=== PATIENT | male | born 1955 | race American Indian/Alaskan Native ===

== ENCOUNTER 2016-06-14 03:16 | Emergency (ER) | payer MEDICARE, MEDICAID ==
[2016-06-14 03:22] VITALS: BP 140/68
[2016-06-14] MEDS ORDERED: GI Cocktail Oral Solution 30 ML PO ONE (03:33)
--- NOTE | 2016-06-14 03:36 | EDM.PDOC ---
ED HPI GI/ABDOMINAL - General Chief Complaint: Abdominal Pain Stated Complaint: ABD PAIN Time Seen by Provider: 06/14/16 03:34 Source of Information: Reports: Patient History Limitations: Reports: No limitations - History of Present Illness INITIAL COMMENTS - FREE TEXT/NARRATIVE: onset Sx 9pm, ate pork chops and beans but earlier ate lot of BBQ chips which has upset his stomach. c/o cramps on off denies vomiting, slight nausea. - Related Data Allergies/ADRs: Allergies Allergy/AdvReac Type Severity Reaction Status Date / Time No Known Allergies Allergy Verified 06/14/16 03:37 Home Meds: Home Meds Febuxostat [Uloric] 40 mg PO DAILY 10/12/13 [History] Lisinopril [Prinivil] 0.5 tab PO DAILY 10/12/13 [History] Metoprolol Tartrate 25 mg PO BID 10/12/13 [History] oxyCODONE HCl [oxyCODONE] 15 mg PO Q8HR PRN 10/15/13 [History] Cyclobenzaprine [Flexeril] 1 tab PO ASDIRECTED PRN 03/13/15 [History] Gabapentin [Neurontin] 1 tab PO TID 03/13/15 [History] Ofloxacin [Floxin 0.3% Otic Soln] 1 drop EYEBOTH ASDIRECTED 03/13/15 [History] prednisoLONE Acetate [Pred Forte 1% Ophth Susp] 1 drop EYEBOTH ASDIRECTED [History] Omeprazole 40 mg PO DAILY 06/14/16 [History] Past Medical History HEENT History: Reports: Cataract, Impaired vision Other HEENT History: WEARS READERS/BIFOCALS Cardiovascular History: Reports: Hypertension Respiratory History: Gastrointestinal History: Reports: Other (see below) Other Gastrointestinal History: ulcers Genitourinary History: Reports: Chronic renal insuffiency, Other (see below) Other Genitourinary History: ERECTILE DYSFUNCTION; MALIGNANT NEOPLASM OF PROSTATE; DETRUSOR INSTABILITY; CKD STAGE III Musculoskeletal History: Reports: Fracture, Gout, Osteoarthritis, Other (see below) Other Musculoskeletal History: SEPTIC ARTHRITIS; POLYARTICULAR ARTHRITIS; CARPAL TUNNEL OF LEFT WRIST; CUBITAL TUNNEL SYNDROME ON LEFT; LEFT RIB FRACTURE Neurological History: Reports: Other (see below) Other Neuro History: CHRONIC PAIN; NUMBNESS AND TINGLING IN HANDS Psychiatric History: Reports: Addiction, Other (see below) Other Psychiatric History: H/O OF ALCOHOL ABUSE Endocrine/Metabolic History: Reports: Hyperparathyroidism, Obesity/BMI 30+ Hematologic History: Reports: Anemia, Other (see below) Other Hematologic History: HYPERURICEMIA Immunologic History: Reports: None Oncologic (Cancer) History: Reports: Prostate Dermatologic History: Reports: None - Past Surgical History Head Surgeries/Procedures: Reports: None GI Surgical History: Reports: Colonoscopy Social & Family History - Family History Family Medical History: Noncontributory - Tobacco Use Smoking Status *Q: Current Every Day Smoker Years of Tobacco use: 40 Packs/Tins Daily: 1 Used Tobacco, but Quit: No Second Hand Smoke Exposure: Yes - Caffeine Use Caffeine Use: Reports: Coffee - Alcohol Use Days Per Week of Alcohol Use: 0 Number of Drinks Per Day: 0 Total Drinks Per Week: 0 - Recreational Drug Use Recreational Drug Use: No Drug Use in Last 12 Months: No - Living Situation & Occupation Living situation: Reports: with family Occupation: disabled ED ROS GENERAL - Review of Systems Review Of Systems: ROS reveals no pertinent complaints other than HPI. ED EXAM, GI/ABD - Physical Exam Exam: See Below Exam Limited By: No limitations General Appearance: alert, WD/WN, mild distress, other (epiG discomfort) Ears: hearing grossly normal Throat/Mouth: Normal voice, No airway compromise Head: atraumatic Neck: non-tender, full range of motion Respiratory/Chest: no respiratory distress Cardiovascular: regular rate, rhythm GI/Abdominal: soft, tenderness, other (epiG). No: distention, guarding, rebound Neurological: alert, oriented, normal cognition, normal gait, no motor/sensory deficits Psychiatric: flat affect Skin Exam: Warm, Dry Lymphatic: no adenopathy Course - Vital Signs Last Recorded V/S: Last Vital Signs Temp 36.0 C 06/14/16 03:19 Pulse 74 06/14/16 03:19 Resp 19 06/14/16 03:19 BP 140/68 06/14/16 03:19 Pulse Ox 98 06/14/16 03:19 - Orders/Labs/Meds Meds: Medications Discontinued Medications Generic Name Dose Route Start Last Admin Trade Name Freq PRN Reason Stop Dose Admin Al Hydroxide/Mg Hydroxide 30 ml 06/14/16 03:33 06/14/16 03:37 Gi Cocktail PO 06/14/16 03:34 30 ml ONETIME ONE Administration - Re-Assessments/Exams Free Text/Narrative Re-Assessment/Exam: 06/14/16 03:47 s/p GI cocktail=pain gone, wants to go home Departure - Departure Time of Disposition: 03:47 Disposition: Home, Self-Care 01 Condition: good Clinical Impression: Reflux esophagitis Forms: ED Department Discharge Additional Instructions: 1) avoid BBQ chips and similar junk foods 2) follow up at clinic or recheck as needed
== END 2016-06-14 03:49 | disposition home or self-care (01) ==
LOC: DL.ED 03:16
DX: K21.0 Gastro-esophageal reflux disease with esophagitis (principal); I12.9 Hypertensive chronic kidney disease with stage 1 through stage 4 chronic kidney disease, or unspecified chronic kidney disease; N18.3 Chronic kidney disease, stage 3 (moderate); F17.210 Nicotine dependence, cigarettes, uncomplicated; Z79.899 Other long term (current) drug therapy
CPT/HCPCS: 99283; A9270

== ENCOUNTER 2016-09-14 11:20 | Emergency (ER) | payer MEDICARE, MEDICAID ==
[2016-09-14 11:28] VITALS: BP 142/71
--- NOTE | 2016-09-14 12:00 | EDM.PDOC ---
ED HPI GENERAL MEDICAL PROBLEM - General Chief Complaint: Laceration Stated Complaint: [id number] CUT LEG NEED STITCHES Time Seen by Provider: 09/14/16 11:58 Source of Information: Reports: Patient History Limitations: Reports: No Limitations - History of Present Illness INITIAL COMMENTS - FREE TEXT/NARRATIVE: 60 yo male presents with cut to right lateral leg from fence. bleeding controlled. no other complaints Onset: Today Duration: Constant Location: Reports: Lower Extremity, Right Quality: Reports: Ache Severity: Mild Improves with: Reports: None Worsens with: Reports: None Associated Symptoms: Reports: No Other Symptoms Right Leg Pain Score (Numeric/FACES): 3 - Related Data Allergies Allergy/AdvReac Type Severity Reaction Status Date / Time No Known Allergies Allergy Verified 09/14/16 11:28 Home Meds: Home Meds Febuxostat [Uloric] 40 mg PO DAILY 10/12/13 [History] Lisinopril [Prinivil] 0.5 tab PO DAILY 10/12/13 [History] Metoprolol Tartrate 25 mg PO BID 10/12/13 [History] oxyCODONE HCl [oxyCODONE] 15 mg PO Q8HR PRN 10/15/13 [History] Cyclobenzaprine [Flexeril] 1 tab PO ASDIRECTED PRN 03/13/15 [History] Gabapentin [Neurontin] 1 tab PO TID 03/13/15 [History] Ofloxacin [Floxin 0.3% Otic Soln] 1 drop EYEBOTH ASDIRECTED 03/13/15 [History] prednisoLONE Acetate [Pred Forte 1% Ophth Susp] 1 drop EYEBOTH ASDIRECTED [History] Omeprazole 40 mg PO DAILY 06/14/16 [History] Past Medical History HEENT History: Reports: Cataract, Impaired Vision Other HEENT History: WEARS READERS/BIFOCALS Cardiovascular History: Reports: Hypertension Respiratory History: Reports: None Gastrointestinal History: Reports: Other (See Below) Other Gastrointestinal History: ulcers Genitourinary History: Reports: Chronic Renal Insuffiency Other Genitourinary History: ERECTILE DYSFUNCTION; MALIGNANT NEOPLASM OF PROSTATE; DETRUSOR INSTABILITY; CKD STAGE III Musculoskeletal History: Reports: Fracture, Gout, Osteoarthritis Other Musculoskeletal History: SEPTIC ARTHRITIS; POLYARTICULAR ARTHRITIS; CARPAL TUNNEL OF LEFT WRIST; CUBITAL TUNNEL SYNDROME ON LEFT; LEFT RIB FRACTURE Neurological History: Reports: Other (See Below) Other Neuro History: CHRONIC PAIN; NUMBNESS AND TINGLING IN HANDS Psychiatric History: Reports: Addiction Other Psychiatric History: H/O OF ALCOHOL ABUSE Endocrine/Metabolic History: Reports: Hyperparathyroidism, Obesity/BMI 30+ Hematologic History: Reports: Anemia, Other (See Below) Other Hematologic History: HYPERURICEMIA Immunologic History: Reports: None Oncologic (Cancer) History: Reports: Prostate Dermatologic History: Reports: None - Infectious Disease History Infectious Disease History: Reports: None - Past Surgical History Head Surgeries/Procedures: Reports: None HEENT Surgical History: Reports: None, Cataract Surgery Male Surgical History: Reports: Penile Surgery Musculoskeletal Surgical History: Reports: Carpal Tunnel, Hip Replacement, Other (See Below) Social & Family History - Family History Family Medical History: Noncontributory - Tobacco Use Smoking Status *Q: Current Every Day Smoker Years of Tobacco use: 48 Packs/Tins Daily: 1 Used Tobacco, but Quit: No Second Hand Smoke Exposure: No - Caffeine Use Caffeine Use: Reports: Coffee, Tea - Alcohol Use Days Per Week of Alcohol Use: 0 Number of Drinks Per Day: 0 Total Drinks Per Week: 0 - Recreational Drug Use Recreational Drug Use: No Drug Use in Last 12 Months: No - Living Situation & Occupation Living situation: Reports: with Family Occupation: Disabled ED ROS GENERAL - Review of Systems Review Of Systems: ROS reveals no pertinent complaints other than HPI. ED EXAM, SKIN/RASH Exam: See Below Exam Limited By: No Limitations General Appearance: Alert, WD/WN, No Apparent Distress Eye Exam: Bilateral Eye: PERRL Respiratory/Chest: No Respiratory Distress, Lungs Clear, Normal Breath Sounds, No Accessory Muscle Use, Chest Non-Tender Cardiovascular: Normal Peripheral Pulses, Regular Rate, Rhythm, No Edema, No Gallop, No JVD, No Murmur, No Rub Neurological: Alert, Oriented, CN II-XII Intact, Normal Cognition, Normal Gait, Normal Reflexes, No Motor/Sensory Deficits Skin: Warm, Dry, Intact, Normal Color, No Rash, Wound/Incision Location, Skin: Lower Extremity, Right Characteristics: Linear Associated features: Tenderness ED SKIN PROCEDURES - Laceration/Wound Repair Right Lateral Leg Lac/Wound length In cm: 4 Appearance: Subcutaneous, Mildly Contaminated Distal NVT: Neuro & Vascular Intact Anesthetic Type: Local Local Anesthesia - Lidocaine (Xylocaine): 1% Plain Local Anesthetic Volume: 4cc Skin Prep: Chlorhexidine (Hibiciens), Saline Saline Irrigation (cc's): 40 Suture Size: 3-0 Repaired with: Vicryl Drain Placement: No Sterile Dressing Applied: None Tetanus Status Addressed: Yes Complications: No Course - Vital Signs Last Recorded V/S: Last Vital Signs Temp 96.8 F 09/14/16 11:27 Pulse 66 09/14/16 11:27 Resp 16 09/14/16 11:27 BP 142/71 H 09/14/16 11:27 Pulse Ox 97 09/14/16 11:27 - Orders/Labs/Meds Meds: Medications Discontinued Medications Generic Name Dose Route Start Last Admin Trade Name Henryq PRN Reason Stop Dose Admin Lidocaine HCl 30 ml 09/14/16 12:01 Xylocaine-Mpf 1% INJECT 09/14/16 12:02 ONETIME ONE Departure - Departure Time of Disposition: 13:00 Disposition: Home, Self-Care 01 Condition: Good Clinical Impression: Laceration - Discharge Information Instructions: Stitches, [place], or Adhesive Wound Closure, [id number], Laceration Care, Adult, [id number] Forms: ED Department Discharge Additional Instructions: Return for any worsening symptoms.
[2016-09-14] MEDS ORDERED: Lidocaine 1% 30 ML SDV INJECT ONE (12:01)
== END 2016-09-14 13:08 | disposition home or self-care (01) ==
LOC: DL.ED 11:20
DX: S81.811A Laceration without foreign body, right lower leg, initial encounter (principal); F17.210 Nicotine dependence, cigarettes, uncomplicated; I12.9 Hypertensive chronic kidney disease with stage 1 through stage 4 chronic kidney disease, or unspecified chronic kidney disease; N18.3 Chronic kidney disease, stage 3 (moderate); E66.9 Obesity, unspecified; Z85.46 Personal history of malignant neoplasm of prostate; Z98.49 Cataract extraction status, unspecified eye; Z98.890 Other specified postprocedural states; Z96.649 Presence of unspecified artificial hip joint; Z79.899 Other long term (current) drug therapy; Z68.41 Body mass index [BMI] 40.0-44.9, adult; X58.XXXA Exposure to other specified factors, initial encounter
CPT/HCPCS: 12002; 99282; 99283

== ENCOUNTER 2017-07-26 12:40 | Emergency (ER) | payer MEDICARE, MEDICAID ==
[2017-07-26 13:14] VITALS: BP 137/71
== END 2017-07-26 15:22 | disposition left against medical advice (07) ==
LOC: DL.ED 12:40
DX: Z53.21 Procedure and treatment not carried out due to patient leaving prior to being seen by health care provider (principal)

== ENCOUNTER 2018-12-20 14:53 | Emergency (ER) | payer MEDICARE, MEDICAID ==
[2018-12-20 16:36] VITALS: BP 138/75; PULSE 78
--- NOTE | 2018-12-20 17:16 | EDM.PDOC ---
ED HPI GENERAL MEDICAL PROBLEM - General Chief Complaint: Genitourinary Problem Stated Complaint: BLADDER ISSUE Time Seen by Provider: 12/20/18 16:45 Source of Information: Reports: Patient, RN, RN Notes Reviewed History Limitations: Reports: No Limitations - History of Present Illness INITIAL COMMENTS - FREE TEXT/NARRATIVE: patient presents to ER with complaints of frequent urination. States he urinates small amounts, feels like he does not empty completely. patient states he is here because he wants a different medication than the oxybutynin that he takes daily. He states he feels the medication does not work for him anymore, and he is unsure of when he can get into see his primary care provider. Patient denies any burning with urination. Patient states he has been taking the oxybutynin for 2-3 years. Onset: Gradual Duration: Constant Generalized Pain Score (Numeric/FACES): 3 - Related Data Allergies Allergy/AdvReac Type Severity Reaction Status Date / Time No Known Allergies Allergy Verified 12/20/18 15:27 Home Meds: Home Meds Febuxostat [Uloric] 40 mg PO DAILY 10/12/13 [History] Lisinopril [Prinivil] 0.5 tab PO DAILY 10/12/13 [History] Metoprolol Tartrate 25 mg PO BID 10/12/13 [History] oxyCODONE HCl [oxyCODONE] 15 mg PO Q8HR PRN 10/15/13 [History] Gabapentin [Neurontin] 1 tab PO TID 03/13/15 [History] Ofloxacin [Floxin 0.3% Otic Soln] 1 drop EYEBOTH ASDIRECTED 03/13/15 [History] prednisoLONE Acetate [Pred Forte 1% Ophth Susp] 1 drop EYEBOTH ASDIRECTED [History] Oxybutynin [Oxybutynin ER] 10 mg PO DAILY 12/20/18 [History] Past Medical History HEENT History: Reports: Cataract, Impaired Vision Other HEENT History: WEARS READERS/BIFOCALS Cardiovascular History: Reports: Hypertension Respiratory History: Reports: None Gastrointestinal History: Reports: Other (See Below) Other Gastrointestinal History: ulcers Genitourinary History: Reports: Chronic Renal Insuffiency Other Genitourinary History: ERECTILE DYSFUNCTION; MALIGNANT NEOPLASM OF PROSTATE; DETRUSOR INSTABILITY; CKD STAGE III Musculoskeletal History: Reports: Fracture, Gout, Osteoarthritis Other Musculoskeletal History: SEPTIC ARTHRITIS; POLYARTICULAR ARTHRITIS; CARPAL TUNNEL OF LEFT WRIST; CUBITAL TUNNEL SYNDROME ON LEFT; LEFT RIB FRACTURE Neurological History: Reports: Other (See Below) Other Neuro History: CHRONIC PAIN; NUMBNESS AND TINGLING IN HANDS Psychiatric History: Reports: Addiction Other Psychiatric History: H/O OF ALCOHOL ABUSE Endocrine/Metabolic History: Reports: Hyperparathyroidism, Obesity/BMI 30+ Hematologic History: Reports: Anemia, Other (See Below) Other Hematologic History: HYPERURICEMIA Immunologic History: Reports: None Oncologic (Cancer) History: Reports: Prostate Dermatologic History: Reports: None - Infectious Disease History Infectious Disease History: Reports: None - Past Surgical History Head Surgeries/Procedures: Reports: None HEENT Surgical History: Reports: None, Cataract Surgery Male Surgical History: Reports: Penile Surgery Musculoskeletal Surgical History: Reports: Carpal Tunnel, Hip Replacement, Knee Replacement, Other (See Below) Social & Family History - Family History Family Medical History: Noncontributory - Tobacco Use Smoking Status *Q: Current Every Day Smoker Years of Tobacco use: 45 Packs/Tins Daily: 1 Second Hand Smoke Exposure: No - Caffeine Use Caffeine Use: Reports: None - Recreational Drug Use Recreational Drug Use: No - Living Situation & Occupation Living situation: Reports: with Family Occupation: Disabled ED ROS GENERAL - Review of Systems Review Of Systems: ROS reveals no pertinent complaints other than HPI. ED EXAM, RENAL/ - Physical Exam Exam: See Below Exam Limited By: No Limitations General Appearance: Alert, WD/WN, No Apparent Distress Eye Exam: Bilateral Eye: EOMI, Normal Inspection Ears: Normal External Exam, Hearing Grossly Normal Nose: Normal Inspection Throat/Mouth: Normal Inspection, Normal Voice, No Airway Compromise Head: Atraumatic, Normocephalic Neck: Normal Inspection, Supple, Non-Tender, Full Range of Motion Respiratory/Chest: No Respiratory Distress, Normal Breath Sounds, No Accessory Muscle Use, Chest Non-Tender, Crackles (Room) Cardiovascular: Normal Peripheral Pulses, Regular Rate, Rhythm, No Edema, No Gallop, No JVD, No Murmur, No Rub GI/Abdominal: Normal Bowel Sounds, Soft, Non-Tender, No Organomegaly, No Distention, No Abnormal Bruit, No Mass (Male) Exam: Deferred Rectal (Males) Exam: Deferred Back Exam: Normal Inspection, Full Range of Motion, NT Extremities: Normal Inspection, Normal Range of Motion, Non-Tender, Normal Capillary Refill, No Pedal Edema Neurological: Alert, Oriented, CN II-XII Intact, Normal Cognition, Normal Gait, Normal Reflexes, No Motor/Sensory Deficits Psychiatric: Normal Affect, Normal Mood Skin Exam: Warm, Dry, Intact, Normal Color, No Rash Lymphatic: No Adenopathy Course - Vital Signs Last Recorded V/S: Last Vital Signs Temp 97.3 F 12/20/18 15:22 Pulse 78 12/20/18 16:35 Resp 16 12/20/18 16:35 BP 138/75 12/20/18 16:35 Pulse Ox 97 12/20/18 16:35 - Orders/Labs/Meds Orders: Active Orders 24 hr Category Date Time Status CULTURE URINE [RM] Urgent Lab 12/20/18 16:34 Received Labs: Laboratory Tests 12/20/18 Range/Units 16:34 Urine Color Yellow (YELLOW) Urine Appearance Clear (CLEAR) Urine pH 7.0 (5.0-9.0) Ur Specific [place] 1.015 (1.005-1.030) Urine Protein >=300 H (NEGATIVE) Urine Glucose (UA) Negative (NEGATIVE) Urine Ketones Negative (NEGATIVE) Urine Occult Blood Trace-intact H (NEGATIVE) Urine Nitrite Negative (NEGATIVE) Urine Bilirubin Negative (NEGATIVE) Urine Urobilinogen 0.2 (0.2-1.0) mg/dL Ur Leukocyte Esterase Trace H (NEGATIVE) Urine RBC 5-10 H /HPF Urine WBC 0-5 (0-5/HPF) /HPF Ur Epithelial Cells Rare (NOT SEEN) /HPF Amorphous Sediment Rare (NOT SEEN) /HPF Urine Bacteria Rare (0-FEW/HPF) /HPF Urine Mucus Rare (NOT SEEN) /LPF Departure - Departure Time of Disposition: 17:14 Disposition: Home, Self-Care 01 Condition: Good Clinical Impression: Overactive bladder - Discharge Information *PRESCRIPTION DRUG MONITORING PROGRAM REVIEWED*: No *COPY OF PRESCRIPTION DRUG MONITORING REPORT IN PATIENT WAN: No Instructions: Overactive Bladder, Adult Forms: ED Department Discharge Additional Instructions: Rx: Oxybutynin 5 mg 1 by mouth daily Follow up with your primary care provider this week - My Orders Last 24 Hours: My Active Orders 12/20/18 16:34 CULTURE URINE [RM] Urgent - Assessment/Plan Last 24 Hours: My Active Orders 12/20/18 16:34 CULTURE URINE [RM] Urgent
== END 2018-12-20 17:19 | disposition home or self-care (01) ==
LOC: DL.ED 14:53
DX: N32.9 Bladder disorder, unspecified (principal); I12.9 Hypertensive chronic kidney disease with stage 1 through stage 4 chronic kidney disease, or unspecified chronic kidney disease; N18.3 Chronic kidney disease, stage 3 (moderate); E66.9 Obesity, unspecified; F17.210 Nicotine dependence, cigarettes, uncomplicated; Z79.899 Other long term (current) drug therapy; Z68.39 Body mass index [BMI] 39.0-39.9, adult
CPT/HCPCS: 81001; 87086; 99283

== ENCOUNTER 2019-02-24 13:32 | Emergency (ER) | payer MEDICARE, MEDICAID ==
[2019-02-24 14:01] VITALS: BP 127/63; PULSE 86
[2019-02-24] MEDS ORDERED: Ibuprofen 800 MG Tab PO ONE (14:35)
[2019-02-24] MEDS ORDERED: Codeine/Promethazine 10-6.25 MG/5 ML Syrup 5 ML UD Cup PO ONE (14:35)
[2019-02-24] MEDS ORDERED: Oseltamivir 75 MG Cap PO ONE (14:35)
--- NOTE | 2019-02-24 14:43 | EDM.PDOC ---
Scribed by Nickie Loredo 02/24/19 [id number] for Ariel Tom MD ED HPI GENERAL MEDICAL PROBLEM - General Chief Complaint: General Stated Complaint: ACHY/DOESN'T FEEL GOOD Time Seen by Provider: 02/24/19 14:09 Source of Information: Reports: Patient, RN, RN Notes Reviewed History Limitations: Reports: No Limitations - History of Present Illness INITIAL COMMENTS - FREE TEXT/NARRATIVE: Patient presents to ER with complaint of body aches and cough starting today. Pt reports subjective fever, but has not measured his temperature. Onset: Today Duration: Getting Worse Location: Reports: Chest Quality: Reports: Ache Severity: Moderate Improves with: Reports: None Associated Symptoms: Reports: No Other Symptoms - Related Data Allergies Allergy/AdvReac Type Severity Reaction Status Date / Time No Known Allergies Allergy Verified 12/20/18 15:27 Home Meds: Home Meds Febuxostat [Uloric] 40 mg PO DAILY 10/12/13 [History] Metoprolol Tartrate 25 mg PO BID 10/12/13 [History] lisinopriL [Prinivil] 0.5 tab PO DAILY 10/12/13 [History] oxyCODONE HCl [oxyCODONE] 15 mg PO Q8HR PRN 10/15/13 [History] Gabapentin [Neurontin] 1 tab PO TID 03/13/15 [History] Ofloxacin [Floxin 0.3% Otic Soln] 1 drop EYEBOTH ASDIRECTED 03/13/15 [History] prednisoLONE Acetate [Pred Forte 1% Ophth Susp] 1 drop EYEBOTH ASDIRECTED [History] Oxybutynin [Oxybutynin ER] 10 mg PO DAILY 12/20/18 [History] Past Medical History HEENT History: Reports: Cataract, Impaired Vision Other HEENT History: WEARS READERS/BIFOCALS Cardiovascular History: Reports: Hypertension Respiratory History: Reports: None Gastrointestinal History: Reports: Other (See Below) Other Gastrointestinal History: ulcers Genitourinary History: Reports: Chronic Renal Insuffiency Other Genitourinary History: ERECTILE DYSFUNCTION; MALIGNANT NEOPLASM OF PROSTATE; DETRUSOR INSTABILITY; CKD STAGE III Musculoskeletal History: Reports: Fracture, Gout, Osteoarthritis Other Musculoskeletal History: SEPTIC ARTHRITIS; POLYARTICULAR ARTHRITIS; CARPAL TUNNEL OF LEFT WRIST; CUBITAL TUNNEL SYNDROME ON LEFT; LEFT RIB FRACTURE Neurological History: Reports: Other (See Below) Other Neuro History: CHRONIC PAIN; NUMBNESS AND TINGLING IN HANDS Psychiatric History: Reports: Addiction Other Psychiatric History: H/O OF ALCOHOL ABUSE Endocrine/Metabolic History: Reports: Hyperparathyroidism, Obesity/BMI 30+ Hematologic History: Reports: Anemia, Other (See Below) Other Hematologic History: HYPERURICEMIA Immunologic History: Reports: None Oncologic (Cancer) History: Reports: Prostate Dermatologic History: Reports: None - Infectious Disease History Infectious Disease History: Reports: None - Past Surgical History Head Surgeries/Procedures: Reports: None HEENT Surgical History: Reports: None, Cataract Surgery Male Surgical History: Reports: Penile Surgery Musculoskeletal Surgical History: Reports: Carpal Tunnel, Hip Replacement, Knee Replacement, Other (See Below) Social & Family History - Family History Family Medical History: Noncontributory - Tobacco Use Smoking Status *Q: Current Every Day Smoker Years of Tobacco use: 1 Packs/Tins Daily: 50 - Caffeine Use Caffeine Use: Reports: Coffee - Recreational Drug Use Recreational Drug Use: No - Living Situation & Occupation Living situation: Reports: with Family Occupation: Disabled ED ROS GENERAL - Review of Systems Review Of Systems: Comprehensive ROS is negative, except as noted in HPI. ED EXAM, GENERAL - Physical Exam Exam: See Below Exam Limited By: No Limitations General Appearance: Alert, WD/WN, No Apparent Distress, Obese Eye Exam: Bilateral Eye: Normal Inspection Ears: Normal External Exam, Normal Canal, Hearing Grossly Normal, Normal TMs Nose: Nasal Drainage, Clear Rhinorrhea Throat/Mouth: Normal Inspection, Normal Lips, Normal Teeth, Normal Gums, Normal Oropharynx, Normal Voice, No Airway Compromise Head: Atraumatic, Normocephalic Neck: Normal Inspection, Supple, Non-Tender, Full Range of Motion. No: Lymphadenopathy (L), Lymphadenopathy (R) Respiratory/Chest: No Respiratory Distress, Lungs Clear, Normal Breath Sounds, No Accessory Muscle Use, Chest Non-Tender, Other (Dry cough) Cardiovascular: Normal Peripheral Pulses, Regular Rate, Rhythm, No Edema, No Gallop, No JVD, No Murmur, No Rub GI/Abdominal: Normal Bowel Sounds, Soft, Non-Tender, No Distention. No: Guarding, Rigid, Rebound Back Exam: Normal Inspection Extremities: Normal Inspection, Normal Range of Motion, Non-Tender, Normal Capillary Refill, No Pedal Edema Neurological: Alert, Oriented, CN II-XII Intact, Normal Cognition, No Motor/ Sensory Deficits Psychiatric: Normal Affect, Normal Mood Skin Exam: Warm, Dry, Intact, Normal Color, No Rash Course - Vital Signs Last Recorded V/S: Last Vital Signs Temp 98.2 F 02/24/19 14:00 Pulse 86 02/24/19 14:00 Resp 18 02/24/19 14:00 BP 127/63 02/24/19 14:00 Pulse Ox 96 02/24/19 14:00 - Orders/Labs/Meds Labs: Influenza A and B: Negative. Meds: Medications Discontinued Medications Generic Name Dose Route Start Last Admin Trade Name Amina PRN Reason Stop Dose Admin Ibuprofen 800 mg 02/24/19 14:35 Motrin PO 02/24/19 14:36 ONETIME ONE Oseltamivir Phosphate 75 mg 02/24/19 14:35 Tamiflu PO 02/24/19 14:36 ONETIME ONE Promethazine HCl/Codeine 10 ml 02/24/19 14:35 Phenergan With Codeine PO 02/24/19 14:36 ONETIME ONE Departure - Departure Time of Disposition: 14:40 Disposition: Home, Self-Care 01 Condition: Good Clinical Impression: Acute viral syndrome - Discharge Information *PRESCRIPTION DRUG MONITORING PROGRAM REVIEWED*: No *COPY OF PRESCRIPTION DRUG MONITORING REPORT IN PATIENT WAN: No Instructions: Viral Illness, Adult, Influenza, Adult, [id number] Forms: ED Department Discharge Additional Instructions: Rx: Tamiflu 75mg Use over the counter Tylenol (Acetaminophen) and/or Ibuprofen (Motrin/Advil) as needed for fever or pain. Follow directions on label for dosing and precautions. Drink plenty of water. Follow up in clinic if not improving in 4 to 5 days. Sepsis Event Note - Evaluation Sepsis Screening Result: No Definite Risk - Focused Exam Vital Signs: Vital Signs Temp Pulse Resp BP Pulse Ox 02/24/19 14:00 98.2 F 86 18 127/63 96 Date Exam was Performed: 02/24/19 Time Exam was Performed: 14:39 I have read and agree with the documentation that has been completed regarding this visit. By signing this record, I attest that the documentation was completed in my physical presence and is an accurate record of the encounter.
== END 2019-02-24 14:58 | disposition home or self-care (01) ==
LOC: DL.ED 13:32
DX: B34.9 Viral infection, unspecified (principal); I12.9 Hypertensive chronic kidney disease with stage 1 through stage 4 chronic kidney disease, or unspecified chronic kidney disease; N18.9 Chronic kidney disease, unspecified; F17.210 Nicotine dependence, cigarettes, uncomplicated; Z79.899 Other long term (current) drug therapy
CPT/HCPCS: 87804; 99283; A9270

== ENCOUNTER 2019-03-25 12:53 | Emergency (ER) | payer MEDICARE, MEDICAID ==
[2019-03-25 13:06] VITALS: BP 115/75; PULSE 88
--- NOTE | 2019-03-25 13:10 | EDM.PDOC ---
ED HPI GENERAL MEDICAL PROBLEM - General Chief Complaint: Genitourinary Problem Stated Complaint: PRIVATE REASONS Time Seen by Provider: 03/25/19 13:09 Source of Information: Reports: Patient, Old Records, RN, RN Notes Reviewed History Limitations: Reports: Other (Pt with poor memory of recent events.) - History of Present Illness INITIAL COMMENTS - FREE TEXT/NARRATIVE: Pt presents to ER from home by POV with c/o penis pain and swelling since having a Carranza catheter placed by a urologist at [facility] on 03/23/19. Pt states he was having urinary incontinence, so he was told he would have to have this catheter in until his next appointment on 04/10/19. Pt denies abdominal pain, pelvic pain, flank pain, low back pain, fever, chills, N/V, or bowel habit changes. Pt states he was started on Flomax. He takes Oxycodone for chronic pain, but states it has not helped his penile pain. Onset: Gradual Duration: Constant Location: Reports: Other (Penis) Quality: Reports: Ache, Pressure Severity: Moderate Improves with: Reports: None Worsens with: Reports: None Associated Symptoms: Reports: No Other Symptoms Penis Pain Score (Numeric/FACES): 7 - Related Data Allergies Allergy/AdvReac Type Severity Reaction Status Date / Time No Known Allergies Allergy Verified 03/25/19 13:06 Home Meds: Home Meds Febuxostat [Uloric] 40 mg PO DAILY 10/12/13 [History] Metoprolol Tartrate 25 mg PO BID 10/12/13 [History] lisinopriL [Prinivil] 0.5 tab PO DAILY 10/12/13 [History] oxyCODONE HCl [oxyCODONE] 15 mg PO Q8HR PRN 10/15/13 [History] Gabapentin [Neurontin] 1 tab PO TID 03/13/15 [History] Ofloxacin [Floxin 0.3% Otic Soln] 1 drop EYEBOTH ASDIRECTED 03/13/15 [History] prednisoLONE Acetate [Pred Forte 1% Ophth Susp] 1 drop EYEBOTH ASDIRECTED [History] Oxybutynin [Oxybutynin ER] 10 mg PO DAILY 12/20/18 [History] Past Medical History HEENT History: Reports: Cataract, Impaired Vision Other HEENT History: WEARS READERS/BIFOCALS Cardiovascular History: Reports: Hypertension Respiratory History: Reports: None Gastrointestinal History: Reports: Other (See Below) Other Gastrointestinal History: ulcers Genitourinary History: Reports: Chronic Renal Insuffiency, Urinary Incontinence Other Genitourinary History: ERECTILE DYSFUNCTION; MALIGNANT NEOPLASM OF PROSTATE; DETRUSOR INSTABILITY; CKD STAGE III Musculoskeletal History: Reports: Fracture, Gout, Osteoarthritis Other Musculoskeletal History: SEPTIC ARTHRITIS; POLYARTICULAR ARTHRITIS; CARPAL TUNNEL OF LEFT WRIST; CUBITAL TUNNEL SYNDROME ON LEFT; LEFT RIB FRACTURE Neurological History: Reports: Other (See Below) Other Neuro History: CHRONIC PAIN; NUMBNESS AND TINGLING IN HANDS Psychiatric History: Reports: Addiction Other Psychiatric History: H/O OF ALCOHOL ABUSE Endocrine/Metabolic History: Reports: Hyperparathyroidism, Obesity/BMI 30+ Hematologic History: Reports: Anemia, Other (See Below) Other Hematologic History: HYPERURICEMIA Immunologic History: Reports: None Oncologic (Cancer) History: Reports: Prostate Dermatologic History: Reports: None - Infectious Disease History Infectious Disease History: Reports: None - Past Surgical History Head Surgeries/Procedures: Reports: None HEENT Surgical History: Reports: None, Cataract Surgery Male Surgical History: Reports: Penile Surgery Musculoskeletal Surgical History: Reports: Carpal Tunnel, Hip Replacement, Knee Replacement, Other (See Below) Social & Family History - Family History Family Medical History: Noncontributory - Tobacco Use Smoking Status *Q: Current Every Day Smoker Years of Tobacco use: 30 Packs/Tins Daily: 0.5 - Caffeine Use Caffeine Use: Reports: Coffee, Energy Drinks, Tea - Recreational Drug Use Recreational Drug Use: No - Living Situation & Occupation Living situation: Reports: with Family Occupation: Employed ED ROS GENERAL - Review of Systems Review Of Systems: Comprehensive ROS is negative, except as noted in HPI. ED EXAM, RENAL/ - Physical Exam Exam: See Below Exam Limited By: No Limitations General Appearance: Alert, WD/WN, No Apparent Distress Head: Atraumatic, Normocephalic Respiratory/Chest: No Respiratory Distress GI/Abdominal: Normal Bowel Sounds, Soft, Non-Tender, No Organomegaly, No Distention, No Abnormal Bruit, No Mass (Male) Exam: Other (Carranza catheter in place and draining normally. Mild generalized penile edema, no erythema. The Carranza was under tension and not secured with a leg strap (pt states he was never given a leg strap when the Carranza was placed).). No: Inguinal Lymphadenopathy, Penile Lesions, Rash, Scrotal Swelling, Scrotum Tenderness (L), Scrotum Tenderness (R), Urethral Discharge Back Exam: Normal Inspection. No: CVA Tenderness (L), CVA Tenderness (R) Neurological: Alert, Oriented, No Motor/Sensory Deficits Psychiatric: Normal Mood Skin Exam: Warm, Dry, Intact, Normal Color, No Rash Course - Vital Signs Last Recorded V/S: Last Vital Signs Temp 97.4 F 03/25/19 13:00 Pulse 88 03/25/19 13:00 Resp 16 03/25/19 13:00 BP 115/75 03/25/19 13:00 Pulse Ox 98 03/25/19 13:00 - Orders/Labs/Meds Orders: Active Orders 24 hr Category Date Time Status CULTURE URINE [RM] Stat Lab 03/25/19 13:50 Received Labs: Laboratory Tests 03/25/19 Range/Units 13:50 Urine Color Yellow (YELLOW) Urine Appearance Cloudy (CLEAR) Urine pH 7.0 (5.0-9.0) Ur Specific [place] 1.025 (1.005-1.030) Urine Protein >=300 H (NEGATIVE) Urine Glucose (UA) Negative (NEGATIVE) Urine Ketones Negative (NEGATIVE) Urine Occult Blood Large H (NEGATIVE) Urine Nitrite Negative (NEGATIVE) Urine Bilirubin Small H (NEGATIVE) Urine Urobilinogen 2.0 H (0.2-1.0) mg/dL Ur Leukocyte Esterase Trace H (NEGATIVE) Urine RBC >100 H /HPF Urine WBC 5-10 H (0-5/HPF) /HPF Ur Epithelial Cells Occasional (NOT SEEN) /HPF Urine Bacteria Few (0-FEW/HPF) /HPF Urine Mucus Not seen (NOT SEEN) /LPF Departure - Departure Time of Disposition: 14:41 Disposition: Home, Self-Care 01 Condition: Fair Clinical Impression: Penile edema, Indwelling Carranza catheter present - Discharge Information *PRESCRIPTION DRUG MONITORING PROGRAM REVIEWED*: No *COPY OF PRESCRIPTION DRUG MONITORING REPORT IN PATIENT WAN: No Instructions: Indwelling Urinary Catheter Care, Adult Forms: ED Department Discharge Additional Instructions: Rest, use an ice pack/cold pack to penis. Stay off your feet. Use the leg strap to prevent the catheter from pulling on the penis. May shower normally. Follow up with your primary clinic next week for recheck. Sepsis Event Note - Evaluation Sepsis Screening Result: No Definite Risk - Focused Exam Vital Signs: Vital Signs Temp Pulse Resp BP Pulse Ox 03/25/19 13:00 97.4 F 88 16 115/75 98 Date Exam was Performed: 03/25/19 Time Exam was Performed: 14:31 - My Orders Last 24 Hours: My Active Orders 03/25/19 13:50 CULTURE URINE [RM] Stat - Assessment/Plan Last 24 Hours: My Active Orders 03/25/19 13:50 CULTURE URINE [RM] Stat
== END 2019-03-25 15:01 | disposition home or self-care (01) ==
LOC: DL.ED 12:53
DX: N48.89 Other specified disorders of penis (principal); I12.9 Hypertensive chronic kidney disease with stage 1 through stage 4 chronic kidney disease, or unspecified chronic kidney disease; N18.3 Chronic kidney disease, stage 3 (moderate); E66.9 Obesity, unspecified; F17.210 Nicotine dependence, cigarettes, uncomplicated; Z96.0 Presence of urogenital implants; Z79.899 Other long term (current) drug therapy
CPT/HCPCS: 81001; 87086; 99282; 99283

== ENCOUNTER 2021-03-17 21:29 | Emergency (ER) | payer MEDICAID, MEDICARE ==
[2021-03-17 22:20] VITALS: BP 160/93; PULSE 83
[2021-03-17] MEDS ORDERED: methylPREDNISolone Sodium Succinate 125 MG/2 ML SDV IM ONE (23:50)
[2021-03-17] MEDS ORDERED: Ketorolac 30 MG/ML SDV IM ONE (23:50)
== END 2021-03-18 00:18 | disposition home or self-care (01) ==
LOC: DL.ED 21:29
DX: M25.552 Pain in left hip (principal); I12.9 Hypertensive chronic kidney disease with stage 1 through stage 4 chronic kidney disease, or unspecified chronic kidney disease; N18.30 Chronic kidney disease, stage 3 unspecified; E66.9 Obesity, unspecified; Z68.30 Body mass index [BMI] 30.0-30.9, adult; Z79.899 Other long term (current) drug therapy
CPT/HCPCS: 36415; 73502; 85025; 86140; 96372; 99283; J1885; J2930

== ENCOUNTER 2021-09-05 07:59 | Emergency (ER) | payer BC, MEDICAID ==
[2021-09-05 08:15] VITALS: BP 169/82; PULSE 76
== END 2021-09-05 08:43 | disposition home or self-care (01) ==
LOC: DL.ED 07:59
DX: N39.0 Urinary tract infection, site not specified (principal); I12.9 Hypertensive chronic kidney disease with stage 1 through stage 4 chronic kidney disease, or unspecified chronic kidney disease; N18.30 Chronic kidney disease, stage 3 unspecified; E66.9 Obesity, unspecified; Z68.36 Body mass index [BMI] 36.0-36.9, adult; Z79.899 Other long term (current) drug therapy
CPT/HCPCS: 81001; 87086; 87088; 87186; 99283

== ENCOUNTER 2021-12-03 02:24 | Emergency (ER) | payer BC, MEDICAID ==
[2021-12-03] MEDS ORDERED: GI Cocktail Oral Solution 30 ML PO ONE (02:45)
[2021-12-03] MEDS ORDERED: Ondansetron 4 MG/2 ML SDV IM ONE (03:20)
[2021-12-03] MEDS ORDERED: Sodium Chloride 0.9% 1,000 ML IV ONE (04:25)
[2021-12-03] MEDS ORDERED: Piperacillin/Tazobactam 3.375 GM in Sodium Chloride 0.9% 100 ML IV ONE (06:02)
[2021-12-28 13:13] LABS: ANION GAP 11.1 mEq/L (7-13); CHLORIDE,CL 109 mmol/L (98-107); SODIUM,NA 142 mmol/L (136-145)
[2021-12-28 13:14] LABS: ESTIMATED GFR 39 mL/min (>=60)
[2021-12-28 13:17] LABS: AMPHETAMINES,URINE NEGATIVE (NEGATIVE); BARBITURATES,URINE NEGATIVE (NEGATIVE); BENZODIAZEPINE,URINE NEGATIVE (NEGATIVE); MDMA (ECSTASY), URINE NEGATIVE (NEGATIVE); METHADONE,URINE NEGATIVE (NEGATIVE); METHAMPHETAMINES,URINE NEGATIVE (NEGATIVE); OPIATES,URINE NEGATIVE (NEGATIVE); OXYCODONE,URINE NEGATIVE (NEGATIVE); PHENCYCLIDINE,URINE NEGATIVE (NEGATIVE); TCA,URINE NEGATIVE (NEGATIVE)
== END 2021-12-03 07:10 ==
LOC: DL.ED 02:24
DX: K80.00 Calculus of gallbladder with acute cholecystitis without obstruction (principal); K57.90 Diverticulosis of intestine, part unspecified, without perforation or abscess without bleeding; I12.9 Hypertensive chronic kidney disease with stage 1 through stage 4 chronic kidney disease, or unspecified chronic kidney disease; N18.9 Chronic kidney disease, unspecified; M10.9 Gout, unspecified
CPT/HCPCS: 36415; 74177; 80053; 80305; 80307; 81001; 82150; 83605; 83690; 85025; 96361; 96374; 96375; 99284; 99285; A9270; J2405; J2543; J7030

== ENCOUNTER 2024-03-14 12:17 | Emergency (ER) | payer BC, MEDICAID, MEDICARE ==
[2024-03-14] MEDS: Ondansetron 4 MG/2 ML SDV IVPUSH ONE (12:43)
[2024-03-14] MEDS: Sodium Chloride 0.9% 500 ML IV SCH (12:43)
[2024-03-14 12:44] LABS: BASOPHILS PERCENT AUTO 0.4 % (0.0-1.0); EOSINOPHILS PERCENT AUTO 7.4 % (1.0-3.0); HEMATOCRIT 28.6 % (40.0-54.0); LYMPHOCYTES PERCENT AUTO 15.3 % (20.5-50.1); MEAN CORPUSCULAR HEMOGLOBIN 30.2 pg (27.0-34.0); MEAN CORPUSCULAR HGB CONC 31.5 g/dL (33.0-35.0); MONOCYTES PERCENT AUTO 9.2 % (2-8); NEUTROPHILS PERCENT AUTO 67.7 % (42.2-75.2); PLATELET COUNT,PLT 183 10^3/uL (150-450); RED BLOOD CELL COUNT 2.98 10^6/uL (4.6-6.2); WHITE BLOOD CELL COUNT,WBC 8.1 10^3/uL (5.0-10.0)
[2024-03-14 12:59] LABS: PROTHROMBIN TIME 10.2 SEC (9.0-12.0)
[2024-03-14 13:04] LABS: ALANINE AMINOTRANSFERASE,ALT 10 U/L (16-63); ALKALINE PHOSPHATASE 75 U/L (46-116); AMYLASE 54 U/L (25-115); ANION GAP 19.2 mEq/L (7-13); ASPARTATE AMNIOTRANSFERASE,AST 10 U/L (15-37); BILIRUBIN DIRECT 0.1 mg/dL (0.0-0.2); BILIRUBIN INDIRECT 0.1; BILIRUBIN TOTAL 0.2 mg/dL (0.2-1.0); BLOOD UREA NITROGEN,BUN 76 mg/dL (7-18); CALCIUM 8.8 mg/dL (8.5-10.1); CARBON DIOXIDE,CO2 19 mmol/L (21-32); CHLORIDE,CL 107 mmol/L (98-107); CREATININE 4.12 mg/dL (0.70-1.30); GLUCOSE RANDOM 105 mg/dL (70-99); LIPASE 29 U/L (16-77); POTASSIUM,K 6.2 mmol/L (3.5-5.1); PROTEIN TOTAL,TP 6.6 g/dL (6.4-8.2); SODIUM,NA 139 mmol/L (136-145)
[2024-03-14 13:07] LABS: A/G RATIO 0.83; ESTIMATED GFR 15 mL/min (>=60)
[2024-03-14] MEDS ORDERED: Glucagon,Human Recombinant 1 MG Vial IM PRN (13:26)
[2024-03-14] MEDS ORDERED: 50% Dextrose in Water 50 ML Syringe IVPUSH PRN (13:26)
[2024-03-14] MEDS: Calcium Gluconate 10% 1 GM/10 ML SDV IVPUSH ONE (13:42)
[2024-03-14] MEDS: 50% Dextrose in Water 50 ML Syringe IVPUSH ONE (13:43)
[2024-03-14] MEDS: Insulin Regular, Human 100 Units/ML 3 ML Vial IV ONE (13:43)
[2024-03-14] MEDS: Sodium Bicarbonate 8.4% 50 MEQ/50 ML Syringe IVPUSH ONE (13:44)
[2024-03-14] MEDS: Insulin Regular, Human 100 Units/ML 10 ML Vial ONE (13:48)
[2024-03-14 15:08] VITALS: BP 163/69; PULSE 69
== END 2024-03-14 16:45 ==
LOC: DL.ED 12:17
DX: N17.9 Acute kidney failure, unspecified (principal); E87.5 Hyperkalemia; D64.9 Anemia, unspecified; I12.9 Hypertensive chronic kidney disease with stage 1 through stage 4 chronic kidney disease, or unspecified chronic kidney disease; N18.30 Chronic kidney disease, stage 3 unspecified; E66.9 Obesity, unspecified; F17.210 Nicotine dependence, cigarettes, uncomplicated; Z79.899 Other long term (current) drug therapy; Z79.52 Long term (current) use of systemic steroids; Z68.36 Body mass index [BMI] 36.0-36.9, adult
CPT/HCPCS: 36415; 80048; 80076; 82150; 82947; 83690; 85025; 85610; 87428-QW; 93005; 93010; 96374; 96375; 99285; 99285-25; J0612; J2405; J3490; J7030

== ENCOUNTER 2024-04-02 10:04 | Emergency (ER) | payer MEDICARE ==
[2024-04-02 10:49] LABS: BASOPHILS PERCENT AUTO 0.2 % (0.0-1.0); EOSINOPHILS PERCENT AUTO 1.2 % (1.0-3.0); HEMATOCRIT 24.2 % (40.0-54.0); HEMOGLOBIN 7.6 g/dL (14.0-18.0); LYMPHOCYTES PERCENT AUTO 6.9 % (20.5-50.1); MEAN CORPUSCULAR HEMOGLOBIN 30.2 pg (27.0-34.0); MEAN CORPUSCULAR HGB CONC 31.4 g/dL (33.0-35.0); MONOCYTES PERCENT AUTO 7.2 % (2-8); NEUTROPHILS PERCENT AUTO 84.5 % (42.2-75.2); PLATELET COUNT,PLT 290 10^3/uL (150-450); RED BLOOD CELL COUNT 2.52 10^6/uL (4.6-6.2)
[2024-04-02 11:12] LABS: ALANINE AMINOTRANSFERASE,ALT 13 U/L (16-63); ALBUMIN 2.5 g/dL (3.4-5.0); ALKALINE PHOSPHATASE 62 U/L (46-116); ANION GAP 13.1 mEq/L (7-13); ASPARTATE AMNIOTRANSFERASE,AST 16 U/L (15-37); BILIRUBIN TOTAL 0.4 mg/dL (0.2-1.0); BLOOD UREA NITROGEN,BUN 26 mg/dL (7-18); BUN/CREATININE RATIO 6.1 (No establ ref range); CALCIUM 8.4 mg/dL (8.5-10.1); CARBON DIOXIDE,CO2 30 mmol/L (21-32); CHLORIDE,CL 96 mmol/L (98-107); CREATININE 4.25 mg/dL (0.70-1.30); GLUCOSE RANDOM 122 mg/dL (70-99); MAGNESIUM 1.8 mg/dL (1.8-2.4); POTASSIUM,K 3.1 mmol/L (3.5-5.1); PROTEIN TOTAL,TP 6.6 g/dL (6.4-8.2); SODIUM,NA 136 mmol/L (136-145)
[2024-04-02 11:13] LABS: A/G RATIO 0.61; ESTIMATED GFR 14 mL/min (>=60); ETHANOL BLOOD MEDICAL < 3 mg/dL (0)
[2024-04-02] MEDS: Sodium Chloride 0.9% 500 ML IV ONE (11:20)
[2024-04-02 12:35] LABS: APPEARANCE,URINE SLIGHTLY CLOUDY (CLEAR); BILIRUBIN,URINE SMALL (NEGATIVE); COLOR,URINE DARK YELLOW (YELLOW); GLUCOSE,URINE NEGATIVE (NEGATIVE); KETONES,URINE NEGATIVE (NEGATIVE); LEUKOCYTE ESTERASE,URINE NEGATIVE (NEGATIVE); NITRITE,URINE NEGATIVE (NEGATIVE); OCCULT BLOOD,URINE NEGATIVE (NEGATIVE); PROTEIN,URINE >=300 (NEGATIVE); UROBILINOGEN,URINE 0.2 mg/dL (0.2-1.0)
[2024-04-02 12:36] VITALS: PULSE 93
[2024-04-02 12:56] LABS: AMORPHOUS SEDIMENT,URINE FEW /HPF (NOT SEEN); BACTERIA,URINE FEW /HPF (0-FEW/HPF); EPITHELIAL CELLS,URINE FEW /HPF (NOT SEEN); RBC,URINE NOT SEEN /HPF (0-5); WBC,URINE 0-5 /HPF (0-5/HPF)
[2024-04-02] MEDS: Potassium Chloride 10 MEQ Tab.ER PO ONE (13:08)
[2024-04-02] MEDS: cefTRIAXone 1 GM Vial IVPUSH ONE (13:19)
[2024-04-02 13:51] VITALS: BP 110/94
== END 2024-04-02 13:50 | disposition home or self-care (01) ==
LOC: DL.ED 10:04
DX: D63.1 Anemia in chronic kidney disease (principal); N18.6 End stage renal disease; Z99.2 Dependence on renal dialysis; L03.113 Cellulitis of right upper limb; E87.6 Hypokalemia; E86.0 Dehydration; I12.9 Hypertensive chronic kidney disease with stage 1 through stage 4 chronic kidney disease, or unspecified chronic kidney disease; N18.30 Chronic kidney disease, stage 3 unspecified; E66.9 Obesity, unspecified; F17.210 Nicotine dependence, cigarettes, uncomplicated; Z79.899 Other long term (current) drug therapy; Z68.35 Body mass index [BMI] 35.0-35.9, adult
CPT/HCPCS: 36415; 70450; 73130-RT; 80053; 80307; 81001; 82947; 83735; 84484; 85025; 93005; 93010; 96361; 96374; 99284-25; 99285; A9270-GY; J0696; J7030

== ENCOUNTER 2024-04-04 13:41 | Emergency (ER) | payer MEDICARE ==
[2024-04-04 14:16] LABS: BASOPHILS PERCENT AUTO 0.2 % (0.0-1.0); HEMATOCRIT 24.1 % (40.0-54.0); HEMOGLOBIN 7.6 g/dL (14.0-18.0); LYMPHOCYTES PERCENT AUTO 9.7 % (20.5-50.1); MEAN CORPUSCULAR HEMOGLOBIN 30.2 pg (27.0-34.0); MEAN CORPUSCULAR HGB CONC 31.5 g/dL (33.0-35.0); MEAN CORPUSCULAR VOLUME 95.6 fL (80-100); MONOCYTES PERCENT AUTO 8.2 % (2-8); NEUTROPHILS PERCENT AUTO 78.9 % (42.2-75.2); PLATELET COUNT,PLT 287 10^3/uL (150-450); RED BLOOD CELL COUNT 2.52 10^6/uL (4.6-6.2); WHITE BLOOD CELL COUNT,WBC 10.4 10^3/uL (5.0-10.0)
[2024-04-04 14:37] LABS: ALBUMIN 2.4 g/dL (3.4-5.0); ANION GAP 12.4 mEq/L (7-13); BILIRUBIN TOTAL 0.3 mg/dL (0.2-1.0); BUN/CREATININE RATIO 6.4 (No establ ref range); CALCIUM 8.6 mg/dL (8.5-10.1); CREATININE 4.07 mg/dL (0.70-1.30); EST CRCL DRUG DOSING (CG) 17.13 mL/min; POTASSIUM,K 3.4 mmol/L (3.5-5.1); PROTEIN TOTAL,TP 6.6 g/dL (6.4-8.2)
[2024-04-04 14:43] LABS: A/G RATIO 0.57
[2024-04-04] MEDS: Potassium Chloride 10 MEQ Tab.ER PO ONE (14:59)
[2024-04-04] MEDS: Pantoprazole 40 MG Vial IVPUSH ONE (15:34)
[2024-04-04] MEDS: Pantoprazole 40 MG in Sodium Chloride 0.9% 100 ML IV SCH (15:35)
[2024-04-04] MEDS: VANCOmycin 2 GM in Sodium Chloride 0.9% 500 ML IV ONE (17:00)
[2024-04-04 17:54] VITALS: BP 118/51; PULSE 86
== END 2024-04-04 17:46 ==
LOC: DL.ED 13:41
DX: K92.2 Gastrointestinal hemorrhage, unspecified (principal); I12.9 Hypertensive chronic kidney disease with stage 1 through stage 4 chronic kidney disease, or unspecified chronic kidney disease; N18.9 Chronic kidney disease, unspecified; E66.9 Obesity, unspecified; Z79.899 Other long term (current) drug therapy; Z99.2 Dependence on renal dialysis; Z68.35 Body mass index [BMI] 35.0-35.9, adult
CPT/HCPCS: 36415; 80053; 82272; 85025; 96365; 96366; 96368; 99285; A9270; J2470; J7040

== ENCOUNTER 2024-05-23 08:04 | Emergency (ER) | payer MEDICARE ==
[2024-05-23] MEDS: Morphine 2 MG/ML SYRINGE IVPUSH ONE (08:42)
[2024-05-23] MEDS: Sodium Chloride 0.9% 500 ML IV ONE (08:42)
[2024-05-23 08:55] LABS: BASOPHILS PERCENT AUTO 0.2 % (0.0-1.0); HEMATOCRIT 33.4 % (40.0-54.0); HEMOGLOBIN 10.4 g/dL (14.0-18.0); LYMPHOCYTES PERCENT AUTO 10.9 % (20.5-50.1); MEAN CORPUSCULAR HEMOGLOBIN 29.3 pg (27.0-34.0); MEAN CORPUSCULAR HGB CONC 31.1 g/dL (33.0-35.0); MEAN CORPUSCULAR VOLUME 94.1 fL (80-100); MONOCYTES PERCENT AUTO 11.3 % (2-8); NEUTROPHILS PERCENT AUTO 76.6 % (42.2-75.2); PLATELET COUNT,PLT 241 10^3/uL (150-450); RED BLOOD CELL COUNT 3.55 10^6/uL (4.6-6.2); WHITE BLOOD CELL COUNT,WBC 12.5 10^3/uL (5.0-10.0)
[2024-05-23] MEDS: Cefepime 2 GM Vial IVPUSH ONE (09:08)
[2024-05-23 09:14] LABS: ALBUMIN 2.7 g/dL (3.4-5.0); BILIRUBIN TOTAL 0.6 mg/dL (0.2-1.0); BUN/CREATININE RATIO 4.5 (No establ ref range); C-REACTIVE PROTEIN 24.06 ng/dL (<=0.50); CREATININE 4.21 mg/dL (0.70-1.30); EST CRCL DRUG DOSING (CG) 16.56 mL/min; MAGNESIUM 1.7 mg/dL (1.8-2.4); POTASSIUM,K 3.8 mmol/L (3.5-5.1); PROTEIN TOTAL,TP 7.5 g/dL (6.4-8.2)
[2024-05-23 09:19] LABS: LACTIC ACID 1.4 mmol/L (0.4-2.0)
[2024-05-23 09:20] LABS: PROTHROMBIN TIME 10.2 SEC (9.0-12.0); PTT,PARTIAL THROMBOPLSTIN TIME 28.1 SEC (22.0-34.0)
[2024-05-23 09:22] LABS: ANION GAP 12.8 mEq/L (7-13)
[2024-05-23] MEDS: VANCOmycin 500 MG SDV ONE (09:28)
[2024-05-23 09:32] LABS: SEDIMENTATION RATE MANUAL 105 mm/hr (0-15)
[2024-05-23 09:33] LABS: A/G RATIO 0.56
[2024-05-23] MEDS: HYDROmorphone 0.5 MG/0.5 ML Syringe IVPUSH ONE (10:07)
[2024-05-23] MEDS: Take Home: Cephalexin 500 MG Cap, 6 Cap Pack PO ONE (11:18)
[2024-05-23] MEDS: Take Home: Clindamycin HCl 150 MG, 12 Cap Pack PO ONE (11:18)
[2024-05-23 11:34] VITALS: BP 128/67; PULSE 92
== END 2024-05-23 11:58 | disposition left against medical advice (07) ==
LOC: DL.ED 08:04
DX: A41.9 Sepsis, unspecified organism (principal); L03.114 Cellulitis of left upper limb; N18.6 End stage renal disease; Z99.2 Dependence on renal dialysis; I12.9 Hypertensive chronic kidney disease with stage 1 through stage 4 chronic kidney disease, or unspecified chronic kidney disease; N18.9 Chronic kidney disease, unspecified; E66.9 Obesity, unspecified; Z79.899 Other long term (current) drug therapy; Z68.32 Body mass index [BMI] 32.0-32.9, adult
CPT/HCPCS: 36415; 73100; 73120; 73200; 80053; 83605; 83735; 85025; 85610; 85651; 85730; 86140; 87040; 96361; 96365; 96366; 96375; 99284; 99291; A9270; J0692; J2270; J7030; J7040

== ENCOUNTER 2024-05-24 09:47 | Emergency (ER) | payer MEDICARE ==
[~2024-05-24 09:47] MED LIST: Sodium Chloride 0.9% 10 ML Syringe FLUSH PRN
[2024-05-24 09:53] VITALS: BP 113/51; PULSE 86
[2024-05-24 10:00] LABS: BASOPHILS PERCENT AUTO 0.1 % (0.0-1.0); EOSINOPHILS PERCENT AUTO 1.9 % (1.0-3.0); HEMATOCRIT 31.2 % (40.0-54.0); HEMOGLOBIN 9.8 g/dL (14.0-18.0); LYMPHOCYTES PERCENT AUTO 8.7 % (20.5-50.1); MEAN CORPUSCULAR HEMOGLOBIN 29.3 pg (27.0-34.0); MEAN CORPUSCULAR HGB CONC 31.4 g/dL (33.0-35.0); MEAN CORPUSCULAR VOLUME 93.4 fL (80-100); MONOCYTES PERCENT AUTO 8.7 % (2-8); NEUTROPHILS PERCENT AUTO 80.6 % (42.2-75.2); PLATELET COUNT,PLT 210 10^3/uL (150-450); RED BLOOD CELL COUNT 3.34 10^6/uL (4.6-6.2); WHITE BLOOD CELL COUNT,WBC 10.8 10^3/uL (5.0-10.0)
[2024-05-24 10:22] LABS: ALANINE AMINOTRANSFERASE,ALT 7 U/L (16-63); ALBUMIN 2.4 g/dL (3.4-5.0); ALKALINE PHOSPHATASE 82 U/L (46-116); ANION GAP 10.7 mEq/L (7-13); ASPARTATE AMNIOTRANSFERASE,AST 15 U/L (15-37); BILIRUBIN TOTAL 0.5 mg/dL (0.2-1.0); BLOOD UREA NITROGEN,BUN 34 mg/dL (7-18); BUN/CREATININE RATIO 6.7 (No establ ref range); CALCIUM 8.9 mg/dL (8.5-10.1); CARBON DIOXIDE,CO2 29 mmol/L (21-32); CHLORIDE,CL 95 mmol/L (98-107); EST CRCL DRUG DOSING (CG) 13.67 mL/min; GLUCOSE RANDOM 117 mg/dL (70-99); MAGNESIUM 1.8 mg/dL (1.8-2.4); POTASSIUM,K 3.7 mmol/L (3.5-5.1); PROTEIN TOTAL,TP 7.1 g/dL (6.4-8.2); SODIUM,NA 131 mmol/L (136-145)
[2024-05-24 10:28] LABS: LACTIC ACID 0.8 mmol/L (0.4-2.0)
[2024-05-24 10:30] LABS: A/G RATIO 0.51; C-REACTIVE PROTEIN > 25.00 ng/dL (<=0.50); ESTIMATED GFR 12 mL/min (>=60)
[2024-05-24] MEDS: Acetaminophen 500 MG Tab PO ONE (11:31)
== END 2024-05-24 13:14 | disposition home or self-care (01) ==
LOC: DL.ED 09:47
DX: L03.114 Cellulitis of left upper limb (principal); I12.9 Hypertensive chronic kidney disease with stage 1 through stage 4 chronic kidney disease, or unspecified chronic kidney disease; N18.9 Chronic kidney disease, unspecified; E66.9 Obesity, unspecified; Z79.899 Other long term (current) drug therapy; Z79.891 Long term (current) use of opiate analgesic; Z68.32 Body mass index [BMI] 32.0-32.9, adult
CPT/HCPCS: 36415; 80053; 83605; 83735; 85025; 86140; 87040; 96365; 96366; 99284; A9270; J7040

== ENCOUNTER 2024-06-01 18:29 | Emergency (ER) | payer MEDICARE ==
[2024-06-01 18:38] VITALS: BP 130/95; PULSE 89
[2024-06-01 20:47] LABS: BASOPHILS PERCENT AUTO 0.2 % (0.0-1.0); EOSINOPHILS PERCENT AUTO 4.4 % (1.0-3.0); HEMATOCRIT 34.8 % (40.0-54.0); HEMOGLOBIN 10.9 g/dL (14.0-18.0); LYMPHOCYTES PERCENT AUTO 18.9 % (20.5-50.1); MEAN CORPUSCULAR HEMOGLOBIN 28.9 pg (27.0-34.0); MEAN CORPUSCULAR HGB CONC 31.3 g/dL (33.0-35.0); MEAN CORPUSCULAR VOLUME 92.3 fL (80-100); MONOCYTES PERCENT AUTO 8.2 % (2-8); NEUTROPHILS PERCENT AUTO 68.3 % (42.2-75.2); PLATELET COUNT,PLT 295 10^3/uL (150-450); RED BLOOD CELL COUNT 3.77 10^6/uL (4.6-6.2); WHITE BLOOD CELL COUNT,WBC 9.3 10^3/uL (5.0-10.0)
[2024-06-01] MEDS: predniSONE 20 MG Tab PO ONE (21:03)
== END 2024-06-01 21:17 | disposition home or self-care (01) ==
LOC: DL.ED 18:29
DX: M10.042 Idiopathic gout, left hand (principal); I10 Essential (primary) hypertension; E66.9 Obesity, unspecified; Z79.899 Other long term (current) drug therapy; Z68.31 Body mass index [BMI] 31.0-31.9, adult
CPT/HCPCS: 36415; 73110; 84550; 85025; 99283; J7512

== ENCOUNTER 2024-06-12 07:15 | Emergency (ER) | payer MEDICARE, OTHER ==
[2024-06-12 07:28] VITALS: BP 151/50; PULSE 95
[2024-06-12] MEDS: Acetaminophen/HYDROcodone 325-5 MG Tab PO ONE (07:42)
[2024-06-12] MEDS: Take Home: Cephalexin 500 MG Cap, 6 Cap Pack PO ONE (07:42)
[2024-06-12] MEDS: predniSONE 20 MG Tab PO ONE (07:42)
[2024-06-12] MEDS: Cephalexin 500 MG Cap PO ONE (07:43)
== END 2024-06-12 07:50 | disposition home or self-care (01) ==
LOC: DL.ED 07:15
DX: M25.522 Pain in left elbow (principal); M79.645 Pain in left finger(s); I10 Essential (primary) hypertension; E66.9 Obesity, unspecified; Z79.899 Other long term (current) drug therapy
CPT/HCPCS: 99283; A9270; J7512

== ENCOUNTER 2024-10-11 18:10 | Emergency (ER) | payer MEDICARE, OTHER ==
[2024-10-11 19:01] LABS: BASOPHILS PERCENT AUTO 0.5 % (0.0-1.0); EOSINOPHILS PERCENT AUTO 3.9 % (1.0-3.0); LYMPHOCYTES PERCENT AUTO 19.8 % (20.5-50.1); MONOCYTES PERCENT AUTO 8.1 % (2-8); NEUTROPHILS PERCENT AUTO 67.7 % (42.2-75.2); PLATELET COUNT,PLT 170 10^3/uL (150-450); RED BLOOD CELL COUNT 3.22 10^6/uL (4.6-6.2); WHITE BLOOD CELL COUNT,WBC 8.0 10^3/uL (5.0-10.0)
[2024-10-11 19:36] LABS: A/G RATIO 1.1; ALANINE AMINOTRANSFERASE,ALT 13.0 U/L (16-63); ASPARTATE AMNIOTRANSFERASE,AST 12.0 U/L (15-37); BILIRUBIN TOTAL 0.5 mg/dL (0.2-1.0); BLOOD UREA NITROGEN,BUN 42.0 mg/dL (7-18); CARBON DIOXIDE,CO2 30.0 mmol/L (21-32); CHLORIDE,CL 99.0 mmol/L (98-107); EST CRCL DRUG DOSING (CG) 10.63 mL/min; GLUCOSE RANDOM 116.0 mg/dL (70-99); POTASSIUM,K 4.7 mmol/L (3.5-5.1); PROTEIN TOTAL,TP 6.7 g/dL (6.4-8.2); SODIUM,NA 134.0 mmol/L (136-145)
[2024-10-11 19:39] LABS: CREATININE 6.56 mg/dL (0.70-1.30); ESTIMATED GFR 9.0 mL/min (>=60)
[2024-10-11 21:32] VITALS: BP 123/80; PULSE 65
== END 2024-10-11 21:05 | disposition home or self-care (01) ==
LOC: DL.ED 18:10
DX: I12.0 Hypertensive chronic kidney disease with stage 5 chronic kidney disease or end stage renal disease (principal); N18.6 End stage renal disease; R42 Dizziness and giddiness; Z79.899 Other long term (current) drug therapy; K21.9 Gastro-esophageal reflux disease without esophagitis; F17.210 Nicotine dependence, cigarettes, uncomplicated; Z99.2 Dependence on renal dialysis
CPT/HCPCS: 36415; 80053; 84484; 85025; 93005; 99284; A9270; 93010